=== PATIENT | female | born 1965 | race Caucasian/White ===

== ENCOUNTER 2018-08-25 04:18 | Inpatient (IN) | payer MEDICAID ==
[~2018-08-25] VITALS: Ht 157.5 cm; Wt 75.3 kg
[2018-08-25] VITALS (7 sets, daily range): BP systolic 83–163; BP diastolic 41–101
[~2018-08-25 04:18] MED LIST: APAP500 PO; ASPIRIN81 M2 PO; ATIVAN0.5 MG PO; BACTRIM DS TAB1 EACH PO; CELEXA 20 MG TA20 MG PO; CELEXA40 MG PO; CLEOCIN HCL300 MG PO; COUMADIN 2.5MG2.5 M1 PO; COUMADIN 5 MG TA5 M1 PO; COUMADIN 5 MG TA5 MG PO; COUMADIN7.5 MG PO; DAZIDOX10 MG PO; KEFLEX500 MG PO; LOPRESSOR 50 MG PO; LOPRESSOR 50 MG50 M1 PO; LORTAB; LOVASTAT20 PO; NEURONTIN 300300 M1 PO; NICODERM CQ1 EAC1 TRANSDERM; NOHOMEMEDICATIONS; NORCO 5-325 TA1 EACH PO; OXYCODONE HCL20 M1 PO; OXYCODONE-ACET1 EACH PO; OXYCONTIN30 MG PO; OXYIR 5 MG CAPSU5 M1 PO; OXYIR5 MG PO; PERCOCET 10-321 EACH PO; PERCOCET 5-3251 EACH PO; SENNA PO; TRAMADOL 50 MG50 MG PO; ULTRAM 50MG TAB50 MG PO
[2018-08-25 04:38] LABS: ABSOLUTE EOSINOPHILS 0.2 thou/uL (0.0-0.7); ABSOLUTE LYMPHOCYTES 0.5 thou/uL (0.8-5.3); ABSOLUTE MONOCYTES 0.3 thou/uL (0.0-1.2); ABSOLUTE NEUTROPHILS 7.4 thou/uL (1.6-8.1); BASOPHILS 0.2 %; EOSINOPHILS 2.3 %; HEMATOCRIT 46.9 % (37.0-47.0); HEMOGLOBIN 15.8 gm/dL (12.0-15.0); LYMPHOCYTES 5.9 %; MCH 29.8 pg (26.0-34.0); MCHC 33.7 g/dL (28.0-37.0); MCV 88.4 fL (80.0-100.0); MONOCYTES 3.3 %; NUCLEATED RBCS 0 /100WBC; PLATELET COUNT* 310 thou/uL (150-400); POLYS 88.3 %; RDW-CV 14.1 % (10.5-14.5); WBC 8.4 thou/uL (4.0-11.0)
[2018-08-25 04:48] LABS: CALCIUM 9.6 mg/dL (8.5-10.1); CREATININE 0.9 mg/dL (0.6-1.3); POTASSIUM 3.8 mmol/L (3.5-5.1)
[2018-08-25 04:53] LABS: ALBUMIN 4.3 g/dL (3.4-5.0); TOTAL BILIRUBIN 0.7 mg/dL (<0.1-1.0); TOTAL PROTEIN 8.1 g/dL (6.4-8.2)
[2018-08-25 05:24] LABS: INR 0.9; PROTIME 9.7 Seconds (9.20-11.50)
--- NOTE | 2018-08-25 07:03 | NUR ---
THIS NURSE RECEIVED REPORT FROM GUSTAVO BHATT. THIS NURSE TO ASSUME PT CARE AT THIS TIME.
--- NOTE | 2018-08-25 08:10 | NUR ---
REPORT GIVEN TO GUSTAVO KAN WHO IS TO ASSUME PT CARE INPATIENT NURSE.
--- NOTE | 2018-08-25 10:18 | NUR ---
ASSUMED PT CARE AT 0900, PT FROM ER. PT ORIENTED/ SITUATED TO ROOM. PT IS M/S, LUNGS SOUND CLEAR. VSS, ADMISSION ASSESSMENT DONE. PT A0X4, UP WITH ASSIST. PT COMPLAINS OF R LEG PAIN. FENTANYL GIVEN PER JUN. PT HAS L LEG AMPUTATION (2012) NOTED. USES WALKER, BEDSIDE COMMODE. PT HAS GENERALIZED REDNESS. BENADRYL GIVEN. IV ACCESS INTACT, NS RUNNING AT 80. LAST BM 08/24/18, ABDOMEN SOFT AND ROUND, ON REGULAR DIET. GOOD INTAKE NOTED ON MEAL. PT HOURLY ROUNDING, CALL LIGHT WITHIN REACH. WILL CONTINUE TO MONITOR
--- NOTE | 2018-08-25 18:40 | NUR ---
PT COMPLAINS OF CONSTANT RIGHT LEG PAIN, PT HAD PRN PAIN MEDS. INNER THIGH BRUISING NOTED AND MONITORED. PICTURE TAKEN, FILED ON CHART. PT BP ON MID 80/40, PROVIDER NOTIFY. FLUIDS GIVEN. PT HAS GENERALIZED BODY REDNESS AND ITCHY. PT FOR ULTRASOUND, CT PELVIS. IV ACCESS INTACT NS RUNNING. HOURLY ROUNDING, WILL CONTINUE TO MONITOR.
--- NOTE | 2018-08-25 18:53 | NUR ---
I HAVE REVIEWED AND AGREE WITH THE CHARTING OF LUZ Contreras RN ON 08/25/18
[2018-08-26 01:00] VITALS: BP 96/52
[2018-08-26 04:00] VITALS: BP 112/60
[2018-08-26 04:11] LABS: HEMATOCRIT 36.2 % (37.0-47.0); MCH 29.7 pg (26.0-34.0); MCHC 33.2 g/dL (28.0-37.0); MCV 89.4 fL (80.0-100.0); MPV 7.9 fl. (7.2-11.1); NUCLEATED RBCS 0 /100WBC; PLATELET COUNT* 239 thou/uL (150-400); RBC 4.05 mil/uL (4.20-5.00); RDW-CV 14.3 % (10.5-14.5); WBC 11.4 thou/uL (4.0-11.0)
[2018-08-26 04:30] LABS: PROTIME 10.7 Seconds (9.20-11.50)
[2018-08-26 04:47] LABS: CALCIUM 8.7 mg/dL (8.5-10.1); CREATININE 1.1 mg/dL (0.6-1.3); POTASSIUM 4.5 mmol/L (3.5-5.1)
[2018-08-26 05:29] LABS: ABSOLUTE LYMPHOCYTES 0.8 thou/uL (0.8-5.3); ABSOLUTE NEUTROPHILS 10.6 thou/uL (1.6-8.1); ANISOCYTOSIS 1+; PLATELET ESTIMATE ADEQUATE; POIKILOCYTOSIS 1+
--- NOTE | 2018-08-26 07:48 | NUR ---
PT CARE ASSUMED AT 1930. SAT MAINTAINED IN RA. ALERT AND ORIENTED X4. CALL LIGHT WITHIN REACH AND BED IN LOW POSITION. C/O PAIN, MEDICATION GIVEN PER EMAR. HOURLY ROUNDING DONE FOR PT SAFETY.
[2018-08-26 08:09] VITALS: BP 111/60
--- NOTE | 2018-08-26 09:18 | NUR ---
ASSUMED CARE OF PT THIS AM AROUND 0715- MS STAUS IN PLACE INDICATED- UPON ASSESSMENT PT NOTED TO BE RESTING IN BED, WATCHING TV- PT A&O X4- CONTINENT OF BOWEL AND BLADDER- LIMITED ASSIST WITH TRANSFERS TO BED SIDE COMMODE- LCTA, RESP EVEN AND UN-LABORED- VSS, O2 SAT 97% ON RA- ABD SOFT/ROUND/NON-TENDER, BS X4 QUADS- LAST BM REPORTED 08/25/18- IV NOTED TO RIGHT AC INTACT, IVF INFUSSING PRESCIBED- GOOD PO INTAKE NOTED THIS AM WITH BREAKFAST- RIGHT AKA NOTED- RLE WITH NOTED PINKNESS- UPPER RIGHT THIGH NOTED WITH 2 BRUISES WITH CIRCLES AROUND, NO REDNESS NOTED TO SPREAD OUTSIDE OF MARKER- PRN BENADRYL GIVEN THIS AM AT 0854 PER PT REQUEST R/T ITCHING- PT DENIES ANY C/O PAIN/DISCOMFORT AT THIS TIME- CALL LIGHT AND PERSONAL BELONGINGS WITH IN REACH- PT MAKES NEEDS KNOWN- ALL NEEDS MET AT THIS TIME-WCTM
[2018-08-26 10:06] LABS: HEMOGLOBIN 15.5 g/dL (11.1-15.9)
[2018-08-26] MEDS ORDERED: XANAX 0.5 MG0.5 MG PO (10:17)
--- NOTE | 2018-08-26 14:16 | NUR ---
Pt is A&O. Resides at home alone. Independent. Pt wears a prothesis on her left leg. Has a walker that she can use for mobility if needed. Pt uses the [employer] for transportation and also has a strong support sx that can provide transportation as needed. Hx of HH post amputation, does not recall the name of the agency. No hx of SNF. Goal is home at dc, no needs anticipated.
--- NOTE | 2018-08-26 16:14 | NUR ---
PT CURRENTLY RESTING IN BED, WATCHING TV- MS STATUS IN PLACE AND MAINTAINED INDICATED- IV TO RIGHT AC INTACT AND SL, IVF COMPLETED ORDERED THIS SHIFT- FAIR PO INTAKE NOTED THIS SHIFT WITH MEALS- PRN XANAX ORDERS OBTAINED PER THIS AM AND GIVEN PER PT REUEST AT 1028- LOVENOX AND WARFARIN NOTED TO BE D/C'D THIS AM PER WITH NEWN ORDERS STARTED FOR ELIQUIS 5MG BID- HYDROCODONE X1 THIS SHIFT AT 1500 PER PT REQEST R/T RLE PAIN, PT REPORTS MEDICAITON TO BE EFFECTIVE- CALL LIGHT AND PERSONAL BELONGINGS WITH IN REACH- PT MAKES NEEDS KNOWN- ALL NEEDS MET AT THIS TIME-WCTM
[2018-08-26 17:08] VITALS: BP 112/63
[2018-08-26 20:00] VITALS: BP 143/70
--- NOTE | 2018-08-27 01:23 | NUR ---
ASSUMED PT CARE @ 1930. PT A+O X 4. UP TO COMMODE W STANDBY ASSIST. 2 BRUISES NOTED ON LEFT THIGH- MARKED. LARGER BRUISE SLIGHTLY OUTSIDE MARKED PARAMETERS WITH A BLISTER. PT STATED "THE BLISTER JUST STARTED THIS AFTERNOON." PT'S SKIN IS ALSO FLUSHED BRIGHT RED (SIMILAR TO A SUNBURN APPEARNACE) ON RIGHT LEG WELL ABD AND BACK. PT REPORTED ITCHING. BENADRYL GIVEN ALONG WITH PRN ANXIETY AND PAIN MEDICATION. PT IS CURRENTLY RESTING IN BED WITH EYES CLOSED. CALL LIGHT IN REACH. HOURLY ROUNDING FOR SAFETY.
[2018-08-27 04:15] VITALS: BP 129/78
[2018-08-27 05:26] LABS: ABSOLUTE EOSINOPHILS 0.6 thou/uL (0.0-0.7); ABSOLUTE LYMPHOCYTES 1.4 thou/uL (0.8-5.3); ABSOLUTE MONOCYTES 0.4 thou/uL (0.0-1.2); BASOPHILS 0.2 %; EOSINOPHILS 6.5 %; HEMATOCRIT 33.9 % (37.0-47.0); HEMOGLOBIN 11.2 gm/dL (12.0-15.0); LYMPHOCYTES 14.7 %; MCH 29.7 pg (26.0-34.0); MCHC 32.9 g/dL (28.0-37.0); MCV 90.4 fL (80.0-100.0); MONOCYTES 4.2 %; MPV 8.1 fl. (7.2-11.1); NUCLEATED RBCS 0 /100WBC; PLATELET COUNT* 247 thou/uL (150-400); POLYS 74.4 %; RBC 3.75 mil/uL (4.20-5.00); RDW-CV 14.5 % (10.5-14.5); WBC 9.4 thou/uL (4.0-11.0)
[2018-08-27 05:34] LABS: INR 1.1; PROTIME 10.8 Seconds (9.20-11.50)
[2018-08-27 06:28] LABS: ALBUMIN 2.9 g/dL (3.4-5.0); CALCIUM 8.6 mg/dL (8.5-10.1); POTASSIUM 4.1 mmol/L (3.5-5.1); TOTAL BILIRUBIN 0.3 mg/dL (<0.1-1.0)
[2018-08-27 08:45] VITALS: BP 114/74
--- NOTE | 2018-08-27 08:45 | NUR ---
ASSUMED PT. CARE AND RECEIVED REPORT AT 0730. PT A/OX4, VSS, PT. MED/SURG STATUS. RIGHT THIGH WITH MARKED EDGES TO SPIDER BITES, SLIGHT GROWTH AROUND PATRICIA NOTED. PT. EXHIBITS REDNESS/WARMTH TO SKIN ALL OVER. C/O PAIN 5/10 CURRENTLY. FULL ASSESSMENT COMPLETED, REFER TO CHARTING. CALL LIGHT IN REACH, WILL CONTINUE WITH PLAN OF CARE.
[2018-08-27 17:11] VITALS: BP 94/53
--- NOTE | 2018-08-27 19:30 | NUR ---
PT. STABLE THROUGH OUT SHIFT. PAIN WELL TOLERATED WITH PAIN MED. LARGER AREA ON RIGHT THIGH BLISTER OPENED UP THIS EVENING. DRESSING PLACED. PT. CONTINUES TO HAVE REDNESS TO SKIN, HOWEVER DOES APPEAR TO BE SLIGHTLY BETTER THIS EVENING. HOURLY ROUNDING COMPLETED.
[2018-08-27 20:00] VITALS: BP 96/40
[2018-08-27 23:43] VITALS: BP 119/50
--- NOTE | 2018-08-28 05:19 | NUR ---
ASSUMED PT CARE @ 1930. PAIN AND ANXIETY MEDICATION GIVEN @ HS. RIGHT THIGH BRUISES ARE SAME SIZE AND APPEARANCE OBSERVED BY THIS RN PREVIOUS CRUMB PACKER. PT'S SKIN IS STILL FLUSHED BRIGHT RED ALL OVER- BUT LESS INTENSE THAN LAST OBSERVED. PT WAS ABLE TO GET SOME REST BUT DID WAKE UP X 1 REQUESTING PAIN MEDICATION. CALL LIGHT IN REACH. HOURLY ROUNDING FOR SAFETY.
[2018-08-28 05:49] LABS: PROTIME 10.1 Seconds (9.20-11.50)
[2018-08-28 08:13] VITALS: BP 110/52
[2018-08-28 12:00] VITALS: BP 101/60
--- NOTE | 2018-08-28 14:42 | NUR ---
WOUND CARE NOTE: CONSULT RECEIVED FOR RIGHT MEDIAL THIGH. TWO AREAS OF DISCOLORATION NOTED. PATIENT STATES SHE FELT A PINCHING SENSATION, THEN GOT UP TO USE THE RESTROOM AND NOTICED THESE AREAS. DISTAL AREA MEASURES 1.5X2, NO OPENINGS NOTED. PURPLE IN DISCOLORATION TO THE CENTER AND THERE IS A BLACK LINE SURROUNDING THIS DISCOLORATION. AREA IS PAINFUL UPON PALPATION, DOES FEEL FIRMER THAN SURROUNDING TISSUES. APPLIED OPTIFOAM AG TO PROTECT AREA. PROXIMAL LESION IS SIMILAR IN COLOR, HOWEVER APPEARS THAT THERE ARE RUPTURED BLISTERS TO CENTER OF DISCOLORATION. WOUND MEASURES 3.5X8X0.1. PURPLE DISCOLORATION, SIMILAR TO THE PREVIOUS DISCUSSED WOUND. OPEN WOUND AREA IS RED, MOIST, SCANT AMOUNTS OF SEROUS DRAINAGE. BLACK OUTLINE NOTED TO THE OUTSIDE OF THE PURPLE DISCOLORATION, THE PREVIOUS WOUND IS TOO. AREA IS FIRMER THAN SURROUNDING TISSUES. CLEANSED AREA WITH WOUND CLEANSER, PATTED DRY. APPLIED OPTIFOAM AG. KEYLA-WOUND REDNESS NOTED, BUT EXTENDS TO BILATERAL THIGHS AND ABDOMEN. RECOMMEND CLOSE MONITORING OF AREA DAILY DRESSING CHANGES FOLLOW UP IN WOUND CENTER UPON DISCHARGE
--- NOTE | 2018-08-28 15:40 | CON ---
[address] [address] CONSULTATION Name: PAOLO BREWER Room: [address] IN [facility].#: [id number] Admission: 08/25/18 Attend Phys: David Donahue MD Discharge: Date of : 69 Report #: [id number] THIS REPORT FOR: //name// CC: David Donahue [facility] physician/PCP DATE OF SERVICE: 08/25/2018 INFECTIOUS DISEASE CONSULTATION REASON FOR CONSULTATION: I was asked to evaluate concerning suspected spider bite with rash. HISTORY OF PRESENT ILLNESS: The patient is a 53-year-old with previous history of vascular disease to her left leg, status post popdo-pnt-[id number] amputation in 2012. She is on chronic anticoagulation with Coumadin. Also, takes oxycodone and gabapentin. Awoke this morning with acute pain in her right groin. This is a burning, tingling pain. Did not see any specific insects in her bed. Subsequently, developed increased erythroderma and low-grade fever, therefore, presented to the Emergency Room. She has two ecchymotic areas to her right upper medial thigh. These were exquisitely painful. I placed her on vancomycin and Zosyn in the Emergency Room and admitted. Initial laboratory studies were unremarkable. She has had no paresthesias down her leg. No other specific trauma noted. No breathing issues, chest pain, nausea, vomiting or diarrhea. REVIEW OF SYSTEMS: Ten-point negative other than what is described above. ALLERGIES: None. MEDICATIONS: As noted on a MAR, having started vancomycin and Zosyn. PAST MEDICAL HISTORY: Peripheral vascular disease, mywtl-ela-[id number] amputation on the left, hyperlipidemia, hypertension, tubal ligation, . FAMILY HISTORY: Noncontributory. SOCIAL HISTORY: Past smoker, no significant alcohol intake. PHYSICAL EXAMINATION: GENERAL: She is afebrile and hemodynamically stable. Alert and cooperative and pleasant, in no acute distress. SKIN: She had diffuse erythroderma. No palpable adenopathy except her left groin. There was ecchymosis in 2 spots involving the proximal medial right thigh. These were exquisitely tender. One measured about 1 cm, then more proximal one was approximately 4 cm. HEENT: Eyes without scleral icterus or conjunctivitis[place] [address] CONSULTATION Name: PAOLO BREWRE Room: [address] IN [facility].#: [id number] Admission: 08/25/18 Attend Phys: David Donahue MD Discharge: Date of : 69 Report #: [id number] mucositis. NECK: Supple, with no thyromegaly or mass. LUNGS: Clear. HEART: Regular, without murmur, gallop or rub. ABDOMEN: Soft, nontender, no hepatosplenomegaly or mass. EXTREMITIES: Left AKA site was unremarkable with no swelling or drainage. Right lower extremity pulses were palpable in the foot. Good capillary refill. Cranial nerves intact. Strength in the upper and lower extremities is normal. Sensation in upper and lower extremities is normal. NEUROLOGIC: Mood normal. LABORATORY STUDIES: Lactic acid 1. INR 0.9. Sodium 141, potassium 3.8, bicarbonate 27, creatinine 0.9. Liver function test normal. CBC unremarkable including differential. IMPRESSION: Painful ecchymotic skin lesions to the right medial thigh. I am suspecting brown recluse spider bite. The systemic reaction, I suspect is toxin mediated hypersensitivity. Given her previous vascular disease, we will need to reevaluate for evidence of deep tissue injury or vascular compromise. 1. RECOMMENDATIONS: Continue ceftriaxone for antibiotic coverage. CT scan of the pelvis and proximal thigh. Ultrasound, arterial studies right lower extremity. Continue with local wound care as appropriate. We will avoid corticosteroids for today until further information is back. <ELECTRONICALLY SIGNED> By: Dawood Marie MD 08/28/18 1540 1711 [id number] Marie MD /nt
[2018-08-28 16:23] VITALS: BP 108/65
[2018-08-28 20:00] VITALS: BP 113/62
[2018-08-29] VITALS: BP 101/55
--- NOTE | 2018-08-29 03:16 | NUR ---
CHANGED PT'S DRESSING ON RIGHT THIGH. MINIMAL BLOOD DRAINAGE. ANXIETY AND PAIN MEDICATION GIVEN. PT HAS BEEN RESTING THROUGH THE NIGHT. CALL LIGHT IN REACH. WILL CONTINUE TO MONITOR FOR SAFDETY.
[2018-08-29 04:00] VITALS: BP 143/71
[2018-08-29 05:41] LABS: ABSOLUTE EOSINOPHILS 0.6 thou/uL (0.0-0.7); ABSOLUTE LYMPHOCYTES 1.4 thou/uL (0.8-5.3); ABSOLUTE MONOCYTES 0.5 thou/uL (0.0-1.2); ABSOLUTE NEUTROPHILS 3.4 thou/uL (1.6-8.1); BASOPHILS 0.2 %; EOSINOPHILS 10.7 %; HEMATOCRIT 34.6 % (37.0-47.0); HEMOGLOBIN 11.6 gm/dL (12.0-15.0); LYMPHOCYTES 23.2 %; MCHC 33.5 g/dL (28.0-37.0); MCV 89.7 fL (80.0-100.0); MONOCYTES 8.1 %; MPV 7.7 fl. (7.2-11.1); NUCLEATED RBCS 0 /100WBC; PLATELET COUNT* 279 thou/uL (150-400); POLYS 57.8 %; RBC 3.86 mil/uL (4.20-5.00); RDW-CV 14.6 % (10.5-14.5)
[2018-08-29 05:51] LABS: CALCIUM 8.4 mg/dL (8.5-10.1); CREATININE 0.9 mg/dL (0.6-1.3); POTASSIUM 4.5 mmol/L (3.5-5.1)
[2018-08-29 07:44] VITALS: BP 152/78
[2018-08-29 10:00] VITALS: BP 152/78
--- NOTE | 2018-08-29 10:09 | NUR ---
PT AFEBRILE. RIGHT GROIN WOUND CARE GIVEN PER WOUND CARE AND SURGERY AND DRESSING CHANGED. PRN BENADRYL ADMIINSTERED PER EMAR.
--- NOTE | 2018-08-29 13:55 | NUR ---
SPOKE TO SURGERY AND OKAY WITH DISCHARGE.
[2018-08-29] MEDS ORDERED: ELIQUIS5 MG PO (14:17)
[2018-08-29] MEDS ORDERED: NORCO 5-325 TA1 EACH PO (14:20)
[2018-08-29] MEDS ORDERED: MINOCIN50 MG PO (15:00)
--- NOTE | 2018-08-29 15:00 | NUR ---
PER SURGERY PT CAN F/U WITH SURGERY OR WOUND CARE. PT HAS F/U APPOINTMENT SCHEDULED WITH WOUND CARE.
--- NOTE | 2018-08-29 16:06 | NUR ---
ALL CONSULTS OKAY WITH DISCHARGED. RECEIVED DISCHARGE ORDERS. SCRIPTS GIVEN TO PATIENT. PT EDUCATED ON F/U APPOINTMENTS. PT EDUCATED ON WOUND CARE INSTRUCTIONS. PT COMMUNICATES UNDERSTANDING.
[2018-08-29 16:09] LABS: GLUCOSE 6-P-D 10.8 U/g Hb (4.6-13.5)
== END 2018-08-29 17:00 | disposition home or self-care (01) | DRG 918 ==
LOC: M.ERS 04:18 → M.TBA-ER 05:59 → M.2W 05:59
PROVIDERS: Emergency Medicine; Specialist; ADMIT Internal Medicine
DX: T63.331A Toxic effect of venom of brown recluse spider, accidental (unintentional), initial encounter (principal); L03.115 Cellulitis of right lower limb; I10 Essential (primary) hypertension; E78.00 Pure hypercholesterolemia, unspecified; F41.9 Anxiety disorder, unspecified; I73.9 Peripheral vascular disease, unspecified; Z89.612 Acquired absence of left leg above knee; Z86.718 Personal history of other venous thrombosis and embolism; Z87.891 Personal history of nicotine dependence; Z98.891 History of uterine scar from previous surgery; Z79.899 Other long term (current) drug therapy; Y92.89 Other specified places as the place of occurrence of the external cause

== ENCOUNTER → 2018-09-06 | Outpatient (CLI) | payer MEDICAID ==
[~2018-09-06] MED LIST changes: +ELIQUIS5 MG PO; +MINOCIN50 MG PO; +XANAX 0.5 MG0.5 MG PO
== END ==
LOC: M.WC 09-02 09:00
DX: T63.331A Toxic effect of venom of brown recluse spider, accidental (unintentional), initial encounter (principal); E78.00 Pure hypercholesterolemia, unspecified; I10 Essential (primary) hypertension; Z89.612 Acquired absence of left leg above knee; Z87.891 Personal history of nicotine dependence; Z86.718 Personal history of other venous thrombosis and embolism; Y92.89 Other specified places as the place of occurrence of the external cause

== ENCOUNTER → 2018-09-09 | Outpatient (CLI) | payer MEDICAID | LOC: M.WC 01:23 | DX: T63.331D Toxic effect of venom of brown recluse spider, accidental (unintentional), subsequent encounter (principal); E78.00 Pure hypercholesterolemia, unspecified; I10 Essential (primary) hypertension; Z87.891 Personal history of nicotine dependence; Z86.718 Personal history of other venous thrombosis and embolism ==

== ENCOUNTER → 2018-09-13 | Outpatient (CLI) | payer MEDICAID | LOC: M.WC 00:17 | DX: T63.331D Toxic effect of venom of brown recluse spider, accidental (unintentional), subsequent encounter (principal); E78.00 Pure hypercholesterolemia, unspecified; I10 Essential (primary) hypertension; Z87.891 Personal history of nicotine dependence; Z86.718 Personal history of other venous thrombosis and embolism ==

== ENCOUNTER → 2018-09-20 | Outpatient (CLI) | payer MEDICAID | LOC: M.WC 05:05 | DX: T63.331D Toxic effect of venom of brown recluse spider, accidental (unintentional), subsequent encounter (principal); E78.00 Pure hypercholesterolemia, unspecified; I10 Essential (primary) hypertension; Z87.891 Personal history of nicotine dependence; Z86.718 Personal history of other venous thrombosis and embolism ==

== ENCOUNTER → 2018-09-27 | Outpatient (CLI) | payer MEDICAID | LOC: M.WC 04:44 | DX: S70.361D Insect bite (nonvenomous), right thigh, subsequent encounter (principal); E78.00 Pure hypercholesterolemia, unspecified; I10 Essential (primary) hypertension; Z86.718 Personal history of other venous thrombosis and embolism; Z87.891 Personal history of nicotine dependence; W57.XXXD Bitten or stung by nonvenomous insect and other nonvenomous arthropods, subsequent encounter ==

== ENCOUNTER → 2018-10-04 | Outpatient (CLI) | payer MEDICAID | LOC: M.WC 04:56 | DX: T63.331D Toxic effect of venom of brown recluse spider, accidental (unintentional), subsequent encounter (principal); E78.00 Pure hypercholesterolemia, unspecified; I10 Essential (primary) hypertension; Z87.891 Personal history of nicotine dependence; Z86.718 Personal history of other venous thrombosis and embolism ==

== ENCOUNTER → 2018-10-11 | Outpatient (CLI) | payer MEDICAID | LOC: M.WC 00:30 | DX: T63.331D Toxic effect of venom of brown recluse spider, accidental (unintentional), subsequent encounter (principal); E78.00 Pure hypercholesterolemia, unspecified; I10 Essential (primary) hypertension; Z87.891 Personal history of nicotine dependence; Z86.718 Personal history of other venous thrombosis and embolism ==

== ENCOUNTER → 2018-10-18 | Outpatient (CLI) | payer MEDICAID | LOC: M.WC 04:35 | DX: T63.331D Toxic effect of venom of brown recluse spider, accidental (unintentional), subsequent encounter (principal); E78.00 Pure hypercholesterolemia, unspecified; I10 Essential (primary) hypertension; Z87.891 Personal history of nicotine dependence; Z86.718 Personal history of other venous thrombosis and embolism ==

== ENCOUNTER → 2018-11-01 | Outpatient (CLI) | payer MEDICAID | LOC: M.WC 04:06 | DX: T63.331D Toxic effect of venom of brown recluse spider, accidental (unintentional), subsequent encounter (principal); E78.00 Pure hypercholesterolemia, unspecified; I10 Essential (primary) hypertension; Z87.891 Personal history of nicotine dependence; Z86.718 Personal history of other venous thrombosis and embolism ==

== ENCOUNTER 2019-10-30 17:57 | Emergency (ER) | payer MEDICAID ==
[~2019-10-30] VITALS: Ht 157.5 cm; Wt 61.7 kg
--- NOTE | ~2019-10-30 | EMS ---
[place] [address] EMS Patient Care Report Name: PAOLO BREWER Room: [facility]#: [id number] Admission: 10/30/19 Attend Phys: Discharge: Date of : 69 Report #: [id number] THIS REPORT FOR: //name// Report Transmitted: 10/30/2019 19:48 EMS Care Summary [facility] Incident [id number] @ 10/30/2019 17:08 Incident Location [address] [place] [address] Patient PAOLO BREWER Female, 54 Years 1965 Patient Address [address] [place] [address] Patient History Amputee,Depression,Alcohol Abuse, Chief Complaint ETOH Intoxication Disposition Transported No Lights/[place] [facility] Reason Altered Mental Status Transported To [facility] Narrative Upon EMS arrival the patient was seated in a wheelchair in the yard of the residence with 2 of her acquaintances and Charis FUNK. The patient was alert and crying. PD stated that the patient was drinking at a neighbors house and the neighbor called the two acquaintances on scene to help get the patient out of her [address] [address] EMS Patient Care Report Name: PAOLO BREWER [id number] Admission: 10/30/19 Attend Phys: Discharge: Date of : 69 Report #: [id number] [address] PD stated that the patient was not cooperative with them and appeared to be extremely intoxicated. The patient was uncooperative with EMS but admitted to ETOH use and kept repeating that she "needed help". The patient was hysterical and was unable to be consoled. The patient denied SI or wanting to harm herself. The patient stated she wanted to be transported to the hospital. EMS assisted the patient to the cot, secured her with straps and rails were raised. The patient was loaded into the ambulance for transport. The patient's leg and cane were brought in the ambulance with the patient. The patient was attached to the youth nutritional monitor and vitals were assessed. Shortly after the patient stated she wanted the monitor disconnected from her and she didn't want anything else done. The patient refused a second set of vitals or further interventions. The patient cried and screamed throughout transport. The patient stated she did not want to be around men anymore and insisted that no men be present for her care in the hospital. EMS stated that this would be included in the handoff report to the receiving nurse. The patient was monitored throughout transport. The patient remained stable with condition unchanged. The patient was transferred to the hospital without incident. Initial Vitals @17:40 @17:29P: 115,R: 18,BP: 139/85,GCS: 15,SpO2: 91,Revised Trauma: 12, Assessments @17:31MENTAL:Confused,Person Oriented,Place Oriented,Event Oriented,SKIN:HEENT:Head/Face: No Abnormalities,Neck/Airway: No Abnormalities,LUNG SOUNDS:General: No Abnormalities,ABDOMEN:General: No Abnormalities,PELVIS//GI:EXTREMITIES:Left Leg: Other,Left Arm: No Abnormalities,Right Arm: No Abnormalities,Right Leg: No Abnormalities,PULSE:NEURO:No Abnormalities, Impression Alcohol use Procedures @17:31ALS AssessmentResponse: UnchangedSucceeded Timeline 17:08,Call Received 17:08,Dispatched 17:11,[place] [address] EMS Patient Care Report Name: [facility]OLO BREWER [id number] Admission: 10/30/19 Attend Phys: Discharge: Date of : 69 Report #: [id number] 17:13,On Scene 17:14,At Patient 17:29,BP: 139/85 M,PULSE: 115,RR: 18 R,SPO2: 91 Ox,ETCO2: ,BG: ,PAIN: ,GCS: 15, 17:30,Depart Scene 17:31,ALS Assessment,Response: UnchangedSucceeded, 17:40,BP: / M,PULSE: ,RR: R,SPO2: Ox,ETCO2: ,BG: ,PAIN: ,GCS: , 17:47,At Destination 17:48,Transfer Patient 18:19,Call Closed Disclaimer v1.1 Copyright 2020 [employer] This EMS Care Summary contains data elements from the applicable legal record (which may be displayed differently). It is designed to provide pertinent information for the following purposes: continuity of care, clinical quality, and state data reporting. The complete legal record is available to ED staff and administrators of the receiving hospital in [facility]'s Patient Tracker. All data is provided "as is."
[2019-10-30 18:20] LABS: ABSOLUTE BASOPHILS 0.1 thou/uL (0.0-0.2); ABSOLUTE EOSINOPHILS 0.3 thou/uL (0.0-0.7); ABSOLUTE MONOCYTES 0.5 thou/uL (0.0-1.2); ABSOLUTE NEUTROPHILS 4.5 thou/uL (1.6-8.1); BASOPHILS 1.3 %; EOSINOPHILS 4.1 %; HEMATOCRIT 45.8 % (37.0-47.0); HEMOGLOBIN 16.1 gm/dL (12.0-15.0); LYMPHOCYTES 26.9 %; MCH 32.8 pg (26.0-34.0); MCHC 35.1 g/dL (28.0-37.0); MCV 93.4 fL (80.0-100.0); MONOCYTES 7.1 %; MPV 7.2 fl. (7.2-11.1); NUCLEATED RBCS 0 /100WBC; PLATELET COUNT* 301 thou/uL (150-400); POLYS 60.6 %; WBC 7.4 thou/uL (4.0-11.0)
[2019-10-30 18:29] LABS: CALCIUM 9.2 mg/dL (8.5-10.1); CREATININE 0.8 mg/dL (0.6-1.3); POTASSIUM 3.8 mmol/L (3.5-5.1)
[2019-10-30 18:34] LABS: TOTAL BILIRUBIN 0.2 mg/dL (<0.1-1.0); TOTAL PROTEIN 7.8 g/dL (6.4-8.2)
[2019-10-30 18:45] LABS: ALCOHOL 320 mg/dL (<10); SALICYLATE 5.6 mg/dL (2.8-20.0)
[2019-10-30 18:46] LABS: ACETAMINOPHEN < 2 ug/mL (10-30)
[2019-10-30 18:50] LABS: URINE BILIRUBIN NEGATIVE (Negative); URINE BLOOD NEGATIVE (Negative); URINE CLARITY CLEAR; URINE COLOR YELLOW; URINE GLUCOSE-RANDOM NEGATIVE (Negative); URINE KETONES NEGATIVE (Negative); URINE LEUKOCYTES-REFLEX NEGATIVE (Negative); URINE NITRITE-REFLEX NEGATIVE (Negative); URINE PROTEIN NEGATIVE (Negative); URINE UROBILINOGEN 0.2 E.U./dl (0.2-1.0)
[2019-10-30 19:00] LABS: AMP/METHAMP Negative (Negative); BARBITURATES Negative (Negative); BENZODIAZEPINES Negative (Negative); COCAINE Negative (Negative); METHADONE Negative (Negative); OPIATES Negative (Negative); PCP Negative (Negative); THC Negative (Negative)
[2019-10-31 06:34] VITALS: BP 120/75
== END 2019-10-31 06:34 | disposition home or self-care (01) ==
LOC: M.ERS 17:57
PROVIDERS: Family Medicine
DX: F10.129 Alcohol abuse with intoxication, unspecified (principal); I10 Essential (primary) hypertension; E78.00 Pure hypercholesterolemia, unspecified; F17.210 Nicotine dependence, cigarettes, uncomplicated; Z98.51 Tubal ligation status; Z98.890 Other specified postprocedural states; Y90.8 Blood alcohol level of 240 mg/100 ml or more